=== PATIENT | male | born 1955 | race Native Hawaiian/Other Pacific Islander ===

== ENCOUNTER 2017-09-17 12:43 | Emergency (ER) | payer OTHER ==
[~2017-09-17] VITALS: Ht 170.2 cm; Wt 49.9 kg
[~2017-09-17 12:43] MED LIST: ALBUTEROL0.083 % IN; BENICAR20 MG PO; BREO ELLIPTA 101 INH IN; CARAFATE1 GM PO; CLOPIDOGREL75 MG PO; HYDR10TA47 PO; HYDR25TA60 PO; METO50TA63 PO; NEXIUM40 M1 PO; NITROSTAT0.4 MG SL; NORCO 10/325***1 TAB PO; SPIRIVA IN; SPIRONOLACT25 MG PO
[2017-09-17 14:03] LABS: PLATELET COUNT 269 K/uL (142-355)
[2017-09-17 14:07] LABS: POTASSIUM 4.5 mmol/L (3.6-5.2)
[2017-09-17 16:10] VITALS: BP 196/90; TEMP 98.9
== END 2017-09-17 16:10 | disposition home or self-care (01) ==
LOC: ED 12:43
PROVIDERS: Emergency Medicine
DX: A08.39 Other viral enteritis (principal); N39.0 Urinary tract infection, site not specified; R82.71 Bacteriuria; E86.0 Dehydration
CPT/HCPCS: 36415; 80053; 81000; 85027; 87088; 96365; 99284; J0696; J2405

== ENCOUNTER 2018-03-01 23:46 | Outpatient (CLI) | payer OTHER ==
[2018-03-02] MEDS ORDERED: BUPR8SUB2 PO (02:48)
[2018-03-02] MEDS ORDERED: XANAX XR1 MG PO (02:49)
[2018-03-02] MEDS ORDERED: CHLO10CA63 PO (02:49)
[2018-03-02] MEDS ORDERED: SUCRALFATE1 GM PO (02:50)
== END 2018-03-01 23:50 | disposition short-term general hospital (02) ==
LOC: AMB 23:46
DX: J44.1 Chronic obstructive pulmonary disease with (acute) exacerbation (principal)
CPT/HCPCS: A0425; A0427

== ENCOUNTER 2018-03-01 23:55 | Emergency (ER) | payer OTHER ==
[~2018-03-01] VITALS: Ht 167.6 cm; Wt 54.4 kg
[2018-03-02 01:05] LABS: PLATELET COUNT 245 K/uL (142-355)
[2018-03-02 01:17] LABS: POTASSIUM 3.6 mmol/L (3.6-5.2); SODIUM 145 mmol/L (136-145)
[2018-03-02 01:22] LABS: PARTIAL THROMBOPLASTIN TIME 26.9 SECONDS (24.5-33.6)
[2018-03-02] MEDS ORDERED: BUPR8SUB2 PO (02:48)
[2018-03-02] MEDS ORDERED: XANAX XR1 MG PO (02:49)
[2018-03-02] MEDS ORDERED: CHLO10CA63 PO (02:49)
[2018-03-02] MEDS ORDERED: SUCRALFATE1 GM PO (02:50)
[2018-03-02 05:45] LABS: POTASSIUM 4.2 mmol/L (3.6-5.2)
[2018-03-02 07:00] VITALS: BP 145/84; TEMP 97.7
== END 2018-03-02 07:00 | disposition home or self-care (01) ==
LOC: ED 23:55
DX: E16.1 Other hypoglycemia (principal); J44.9 Chronic obstructive pulmonary disease, unspecified
CPT/HCPCS: 36415; 80048; 80307; 81000; 82550; 82947; 82962; 83880; 84484; 85027; 85610; 85730; 93005; 96360; 96361; 96374; 96375; 96376; 99284; J2310; J2930; J7060

== ENCOUNTER 2018-06-10 13:26 | Outpatient (CLI) | payer OTHER ==
[~2018-06-10 13:26] MED LIST changes: +BUPR8SUB2 PO; +CHLO10CA63 PO; +SUCRALFATE1 GM PO; +XANAX XR1 MG PO
== END 2018-06-10 20:27 | disposition home or self-care (01) ==
LOC: US 13:26
DX: R22.2 Localized swelling, mass and lump, trunk (principal)

== ENCOUNTER 2018-06-11 20:39 | Outpatient (CLI) | payer OTHER | END 2018-06-11 20:44 | disposition short-term general hospital (02) | LOC: AMB 20:39 | DX: R06.09 Other forms of dyspnea (principal) | CPT/HCPCS: A0425; A0427 ==

== ENCOUNTER 2018-06-11 20:47 | Emergency (ER) | payer OTHER ==
[~2018-06-11] VITALS: Ht 167.6 cm; Wt 50.3 kg
[2018-06-11 21:39] LABS: PLATELET COUNT 386 K/uL (142-355)
[2018-06-11 21:45] LABS: POTASSIUM 5.2 mmol/L (3.6-5.2); SODIUM 138 mmol/L (136-145)
[2018-06-11 22:54] VITALS: BP 112/76; TEMP 98.2
== END 2018-06-11 22:57 | disposition home or self-care (01) ==
LOC: ED 20:47
PROVIDERS: Family Medicine
DX: R07.89 Other chest pain (principal); J44.9 Chronic obstructive pulmonary disease, unspecified
CPT/HCPCS: 80053; 82550; 82553; 83880; 84484; 85027; 93005; 99283

== ENCOUNTER 2018-09-02 10:41 | Inpatient (IN) | payer OTHER ==
[~2018-09-02] VITALS: Ht 170.2 cm; Wt 46.0 kg
[2018-09-02 11:17] VITALS: BP 180/104; TEMP 97.7
[2018-09-02 12:39] LABS: PLATELET COUNT 360 K/uL (142-355)
[2018-09-02 14:30] VITALS: BP 136/84
[2018-09-02 17:59] VITALS: BP 180/114; TEMP 98.1; Ht 170.2 cm; Wt 46.0 kg
[2018-09-02 20:00] VITALS: BP 160/103; TEMP 98.1
[2018-09-03] VITALS: BP 164/113; TEMP 97.9
[2018-09-03 04:00] VITALS: BP 120/85; TEMP 98.2
[2018-09-03 08:00] VITALS: BP 159/101; TEMP 98.2
[2018-09-03 08:28] LABS: PLATELET COUNT 286 K/uL (142-355)
[2018-09-03 08:46] LABS: POTASSIUM 3.2 mmol/L (3.6-5.2)
[2018-09-03] MEDS ORDERED: DIAZEPAM10 M2 PO (10:53)
[2018-09-03] MEDS ORDERED: ALPR0.5T24 PO (10:54)
[2018-09-03] MEDS ORDERED: HYDR25TA60 PO (11:00)
[2018-09-03] MEDS ORDERED: SPIRONOLACT25 MG PO (11:03)
[2018-09-03] MEDS ORDERED: D 50005000 UNIT PO (11:03)
[2018-09-03] MEDS ORDERED: FLUOXETINE10 MG PO (11:04)
[2018-09-03] MEDS ORDERED: BUPROPION HYDR300 MG PO (11:04)
[2018-09-03] MEDS ORDERED: CLOTCRE5 EX (11:05)
[2018-09-03 12:00] VITALS: BP 133/88; TEMP 98
[2018-09-03 16:00] VITALS: BP 161/98; TEMP 97.9
[2018-09-03 20:00] VITALS: BP 136/87; TEMP 98
[2018-09-04] VITALS: BP 117/76; TEMP 98.5
[2018-09-04 04:00] VITALS: BP 122/82; TEMP 98.4
[2018-09-04 04:53] LABS: PLATELET COUNT 236 K/uL (142-355)
[2018-09-04 05:04] LABS: POTASSIUM 3.7 mmol/L (3.6-5.2)
[2018-09-04 08:00] VITALS: BP 120/81; TEMP 97.9
[2018-09-04 12:00] VITALS: BP 111/79; TEMP 98
[2018-09-04 16:00] VITALS: BP 106/70; TEMP 98.2
[2018-09-04 20:00] VITALS: BP 111/70; TEMP 98.4
[2018-09-05] VITALS (7 sets, daily range): BP systolic 103–131; BP diastolic 70–83; TEMP 98–98.7
[2018-09-05 05:40] LABS: PLATELET COUNT 208 K/uL (142-355)
[2018-09-05 06:15] LABS: POTASSIUM 3.6 mmol/L (3.6-5.2)
[2018-09-06 04:00] VITALS: BP 139/84; TEMP 97.9
[2018-09-06 05:37] LABS: PLATELET COUNT 177 K/uL (142-355)
[2018-09-06 05:45] LABS: POTASSIUM 3.2 mmol/L (3.6-5.2)
[2018-09-06 08:00] VITALS: BP 154/100; TEMP 98.6
[2018-09-06 12:00] VITALS: BP 113/72; TEMP 98.2
[2018-09-06 16:00] VITALS: BP 144/78; TEMP 98.3
[2018-09-06 20:00] VITALS: BP 153/103; TEMP 97.8
[2018-09-07] VITALS: BP 141/94; TEMP 98.2
[2018-09-07 04:00] VITALS: BP 165/108; TEMP 98
[2018-09-07 06:39] LABS: PLATELET COUNT 180 K/uL (142-355)
[2018-09-07 06:47] LABS: POTASSIUM 4.8 mmol/L (3.6-5.2)
[2018-09-07 08:00] VITALS: BP 150/98; TEMP 98.8
[2018-09-07 12:00] VITALS: BP 113/83; TEMP 98
[2018-09-07 16:00] VITALS: BP 125/104; TEMP 98.1
[2018-09-07 20:00] VITALS: BP 143/102; TEMP 98.5
[2018-09-08] VITALS: BP 174/120; TEMP 98.5
[2018-09-08 04:00] VITALS: BP 119/83; TEMP 98.1
[2018-09-08 06:18] LABS: PLATELET COUNT 207 K/uL (142-355)
[2018-09-08 06:22] LABS: POTASSIUM 4.4 mmol/L (3.6-5.2)
[2018-09-08 08:00] VITALS: BP 140/97; TEMP 97.9
== END 2018-09-08 17:50 | disposition home or self-care (01) | DRG 190 ==
LOC: ED 10:41 → MED/SURG 15:02 → UNDODEPER 09-03 14:21 → MED/SURG 09-05 09:30
PROVIDERS: Family Medicine; Internal Medicine; ADMIT Emergency Medicine
DX: J44.1 Chronic obstructive pulmonary disease with (acute) exacerbation (principal); E43 Unspecified severe protein-calorie malnutrition; E87.1 Hypo-osmolality and hyponatremia; Z68.1 Body mass index [BMI] 19.9 or less, adult; F11.20 Opioid dependence, uncomplicated; E83.42 Hypomagnesemia; D53.9 Nutritional anemia, unspecified; E87.6 Hypokalemia; R62.7 Adult failure to thrive; Z99.81 Dependence on supplemental oxygen; F17.218 Nicotine dependence, cigarettes, with other nicotine-induced disorders; I25.10 Atherosclerotic heart disease of native coronary artery without angina pectoris; L89.152 Pressure ulcer of sacral region, stage 2; G89.29 Other chronic pain; K21.9 Gastro-esophageal reflux disease without esophagitis; D72.828 Other elevated white blood cell count; F32.89 Other specified depressive episodes; R26.89 Other abnormalities of gait and mobility; N20.0 Calculus of kidney
CPT/HCPCS: 36415; 80048; 80053; 81000; 82306; 82607; 82746; 82747; 83735; 84154; 85027; 93005; 94640; 94644; 94664; 94760; 96360; 96361; 99284; J0456; J1100; J2920; J2930; J3475; Q9963

== ENCOUNTER 2018-09-11 15:34 | Outpatient (CLI) | payer OTHER ==
[~2018-09-11 15:34] MED LIST changes: -ALBUTEROL0.083 % IN; +ALBUTEROL0.083 % INH; +ALPR0.5T24 PO; +BUPROPION HYDR300 MG PO; +CLOTCRE5 EX; +D 50005000 UNIT PO; +DIAZEPAM10 M2 PO; +FLUOXETINE10 MG PO
[2018-09-12] MEDS ORDERED: FURO20TA67 PO (09:23)
== END 2018-09-11 15:39 | disposition short-term general hospital (02) ==
LOC: AMB 15:34
DX: R41.82 Altered mental status, unspecified (principal); R53.1 Weakness; R62.7 Adult failure to thrive
CPT/HCPCS: A0425; A0427

== ENCOUNTER 2018-09-11 15:39 | Observation (INO) | payer OTHER ==
[2018-09-11] VITALS (11 sets, daily range): BP systolic 124–155; BP diastolic 78–99; TEMP 97.7–98.9; Ht 170.2 cm; Wt 41.0 kg
[~2018-09-11] VITALS: Ht 170.2 cm; Wt 41.0 kg
[2018-09-11 16:36] LABS: PLATELET COUNT 243 K/uL (142-355)
[2018-09-11 17:03] LABS: POTASSIUM 3.7 mmol/L (3.6-5.2)
[2018-09-12 03:50] VITALS: BP 152/93; TEMP 98.4
[2018-09-12 05:18] LABS: PLATELET COUNT 214 K/uL (142-355)
[2018-09-12 05:53] LABS: POTASSIUM 4.4 mmol/L (3.6-5.2)
[2018-09-12 08:00] VITALS: BP 156/85; TEMP 98.1
[2018-09-12] MEDS ORDERED: FURO20TA67 PO (09:23)
[2018-09-12 12:00] VITALS: BP 142/78; TEMP 98.8
[2018-09-12 16:00] VITALS: BP 124/79; TEMP 98.4
[2018-09-12 20:00] VITALS: BP 105/68; TEMP 98.1
[2018-09-13] VITALS: BP 95/54; TEMP 98.36
[2018-09-13 04:00] VITALS: BP 93/60; TEMP 98.1
[2018-09-13 12:00] VITALS: BP 105/69; TEMP 98.2
[2018-09-13 16:00] VITALS: BP 114/79; TEMP 97.9
[2018-09-13 20:00] VITALS: BP 128/68; TEMP 98.5
[2018-09-14] VITALS: BP 91/52; TEMP 97.5
[2018-09-14 03:55] VITALS: BP 96/63; TEMP 98.3
[2018-09-14 08:00] VITALS: BP 106/66; TEMP 98
[2018-09-14 12:00] VITALS: BP 95/59; TEMP 97.9
== END 2018-09-14 15:40 | disposition home or self-care (01) ==
LOC: ED 15:39 → MED/SURG 20:20
PROVIDERS: Family Medicine; ADMIT Internal Medicine
DX: F15.23 Other stimulant dependence with withdrawal (principal); J44.9 Chronic obstructive pulmonary disease, unspecified; I10 Essential (primary) hypertension; I25.10 Atherosclerotic heart disease of native coronary artery without angina pectoris
CPT/HCPCS: 80048; 80053; 80307; 80329; 81000; 85027; 94640; 94664; 94760; 96365; 96366; 99220; 99283; G0378